=== PATIENT | female | born 1990 | race Caucasian/White ===

== ENCOUNTER 2016-07-16 08:17 | Outpatient (CLI) | payer BC | END 2016-07-16 08:20 | LOC: OUT 08:17 | PROVIDERS: ATTEND General Practice | DX: Z00.00 Encounter for general adult medical examination without abnormal findings (principal) | CPT/HCPCS: 99214 ==

== ENCOUNTER 2017-02-18 13:30 | Outpatient (CLI) | payer BC ==
[2017-02-18 13:50] LABS: BASOPHILS % 0.6 (0.0-1.5); EOSINOPHILS % 1.9 % (0.0-6.8); MEAN CORPUSCULAR HEMOGLOBIN 28.9 pg (28.0-34.0); MEAN CORPUSCULAR VOLUME 85.7 fl (80.0-100.0); MONOCYTES % 4.3 % (0.0-11.0); NEUTROPHILS # 6.8 # k/uL (1.4-7.7)
[2017-02-18 14:26] LABS: eGFR (African) > 60; eGFR (Non-African) > 60
== END 2017-02-18 13:32 ==
LOC: RT 13:30
PROVIDERS: ATTEND Family Medicine
DX: R42 Dizziness and giddiness (principal)
CPT/HCPCS: 36415; 80053; 85025

== ENCOUNTER 2017-08-12 09:12 | Outpatient (CLI) | payer BC | END 2017-08-12 09:30 | LOC: OUT 09:12 | PROVIDERS: ATTEND General Practice | DX: Z01.419 Encounter for gynecological examination (general) (routine) without abnormal findings (principal) | CPT/HCPCS: 99213 ==

== ENCOUNTER 2018-01-27 15:15 | Emergency (ER) | payer BC, OTHER ==
--- NOTE | 2018-01-27 15:49 | ED Physician Documentation ---
General Adult - HISTORIAN Historian: patient - HPI Stated Complaint: Chest pain/SOA Chief Complaint: Dyspnea Additional Information: several noc ago started to have some chest pressure, BP 140/80, P 144. [place] hot and did not feel that she was getting enough air. Has had several more episodes not as severe since then. No swelling in feet or legs. No history blood clots. Mother with history of,superficial thrombophlebitis. Patient has not been before. Patient denies any cough. - ROS CONST: no problems. denies: fever, chills CVS/RESP: shortness of breath. denies: chest pain, cough GI/: denies: none - PAST HX Past History: other (endometriosis, low blood volume) Other History: none Surgeries/Procedures: other (laperostomy) Immunizations: referred to PCP Allergies/Adverse Reactions: Allergies Allergy/AdvReac Type Severity Reaction Status Date / Time cefaclor [From Ceclor] AdvReac Unknown Rash Verified 01/27/18 15:29 - SOCIAL HX Smoking History: non-smoker Alcohol Use: occasionally Drug Use: none - FAMILY HX Family History: No - VITAL SIGNS Vital Signs: Vital Signs Temp Pulse Resp BP Pulse Ox 96.8 F L 78 15 116/79 99 01/27/18 15:15 01/27/18 15:15 01/27/18 15:15 01/27/18 15:15 01/27/18 15:15 - REVIEWED ASSESSMENTS Nursing Assessment Reviewed: Yes Vitals Reviewed: Yes General Adult Physical Exam - PHYSICAL EXAM GENERAL APPEARANCE: mild distress EENT: ENT inspection normal, no signs of dehydration NECK: normal inspection, thyroid normal, supple. No: lymphadenopathy, stiff neck RESPIRATORY: no resp distress, chest non-tender, breath sounds normal. No: wheezes, rales, rhonchi CVS: reg rate & rhythm, heart sounds normal, equal pulses, no murmur, no gallop ABDOMEN: soft, no organomegaly, normal bowel sounds, no abdominal bruit, no distension SKIN: warm/dry, normal color NEURO: oriented X3, mood/affect nml, cognition normal Discharge Clincal Impression: Dyspepsia Referrals: Rere Perez MD [Primary Care Provider] - 2 Days Additional Instructions: Take Naprosyn 500mg one tablet twice a day for inflammation. Take Bactrim DS for possible urinary tract infection. I will have Dr Perez's nurse make an appointment for Friday to be seen. Condition: Stable Disposition: HOME, SELF-CARE Decision to Admit: NO Date of Decison to Admit: 01/27/18 Decision Time: 17:33
[2018-01-27 16:12] LABS: APPEARANCE,URINE CLEAR (CLEAR); COLOR,URINE YELLOW (YELLOW); OCCULT BLOOD,URINE NEGATIVE (NEGATIVE)
[2018-01-27 16:13] LABS: URINE HCG NEGATIVE (NEGATIVE); UROBILINOGEN URINE 0.2 Eu (0.2-1.0)
[2018-01-27 16:18] LABS: BASOPHILS % 0.6 (0.0-1.5); EOSINOPHILS % 1.6 % (0.0-6.8); MEAN CORPUSCULAR HEMOGLOBIN 28.9 pg (28.0-34.0); MEAN CORPUSCULAR VOLUME 90.1 fl (80.0-100.0); MONOCYTES % 4.1 % (0.0-11.0); NEUTROPHILS # 5.6 # k/uL (1.4-7.7)
[2018-01-27 16:35] LABS: eGFR (African) > 60; eGFR (Non-African) > 60
[2018-01-27 17:50] VITALS: BP 110/55
--- NOTE | 2018-01-27 18:14 | Diagnostic Imaging Report ---
TAMMIE FIERRO [facility] [id number] [facility].[address] [address] Report Submission Date: Jan 27, 2018 4:22:28 PM CDT Patient Study Name: ROXY GUERIN Date: Jan 27, 2018 4:00:27 PM CDT Modality Type: DX Gender: F Description: CHEST : 89 Institution: [facility] Physician: TAMMIE FIERRO PA AND LATERAL CHEST HISTORY: Dyspnea COMPARISON: None PA and Lateral Chest dated January 27, 2018 demonstrates a normal cardiomediastinal silhouette. Pulmonary vascularity is normal. Lungs are clear. IMPRESSION: NO ACTIVE DISEASE. Electronically signed on Jan 27, 2018 4:22:28 PM CDT by: Opal GREENFIELD
== END 2018-01-27 17:48 | disposition home or self-care (01) ==
LOC: ED 15:15
DX: R10.13 Epigastric pain (principal)
CPT/HCPCS: 71046; 80053; 81002; 81025; 85025; 85379; 87086; S1016

== ENCOUNTER 2018-07-30 08:31 | Outpatient (CLI) | payer OTHER ==
--- NOTE | 2018-07-30 09:50 | Diagnostic Imaging Report ---
<p>Your browser does not support iframes.</p> SEEMA HERNANDEZ [facility] [address] [facility].[address] 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 No pancreatic abnormalities are noted. The liver demonstrates homogeneous echotexture without evident mass. The right kidney measures 11.3 cm in length and demonstrates no hydronephrosis or evident mass. The gallbladder is normal. No gallstones are noted. The common duct is normal in caliber measuring 3.7 mm. Impression: Normal right upper quadrant ultrasound. Electronically signed on Jul 30, 2018 9:11:47 AM STOCK SAW OPERATOR by: Opal GREENFIELD
[2018-07-30 10:14] LABS: MEAN CORPUSCULAR HEMOGLOBIN 28.9 pg (28.0-34.0)
[2018-07-30 10:29] LABS: eGFR (Non-African) > 60
== END 2018-07-30 08:33 ==
LOC: RAD 08:31
PROVIDERS: ATTEND Family Medicine
DX: R11.0 Nausea (principal); R10.11 Right upper quadrant pain
CPT/HCPCS: 36415; 76705; 80053; 85027